=== PATIENT | male | born 1990 | race American Indian/Alaskan Native ===

== ENCOUNTER 2019-02-18 02:43 | Emergency (ER) | payer SELFPAY ==
[2019-02-18] MEDS ORDERED: BOOSTRIX IM ONE (02:54)
[2019-02-18] MEDS ORDERED: XYLOCAINE 1% MPF 5 mL INFILTRATI ONE ×2 (02:54→05:24)
[2019-02-18] MEDS ORDERED: IBUPROFEN PO ONE (02:54)
[2019-02-18 02:58] VITALS: BP 148/99
--- NOTE | 2019-02-18 03:45 | XRay Report ---
RIGHT HAND, 3 VIEWS 02/18/2019 INDICATION / CLINICAL INFORMATION: hand pain - laceration, foreign bodies. COMPARISON: None available. FINDINGS: No skeletal abnormality. No radiopaque soft tissue foreign bodies are identified. Signer Name: Jamshid Chavez MD Signed: 02/18/2019 3:40 AM Workstation Name: [id number]
--- NOTE | 2019-02-18 03:46 | XRay Report ---
RIGHT WRIST, 3 VIEWS 02/18/2019 INDICATION / CLINICAL INFORMATION: foreign body - pain, laceration. COMPARISON: None available. FINDINGS: No fracture or dislocation. Carpal alignment is normal. No radiopaque soft tissue foreign bodies. Signer Name: Jamshid Chavez MD Signed: 02/18/2019 3:41 AM Workstation Name: [id number]
[2019-02-18] MEDS ORDERED: XYLOCAINE 1% MPF 5 mL ONE ×2 (05:05→05:26)
--- NOTE | 2019-02-18 05:52 | Emergency Department Report ---
ED Fall HPI - General Chief Complaint: Wound/Laceration Stated Complaint: RT HAND LAC Source: patient Mode of arrival: Ambulatory - History of Present Illness Initial Comments: Patient is a 29-year-old -Armenian male with no past medical history presented to the ED with painful bleeding right hand laceration and wrist pain after he slipped and fell down at work landing on broken glass that cut his right thumb about 2 hours ago. Patient denies numbness or tingling or weakness of right hand or right wrist. Patient denies head or neck injuries, back pain, hip pain, loss of consciousness, easiness, syncope, or abdominal pain. Patient states that he is not updated his tetanus vaccinations. 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: yes, by bystander Place Fall Occurred: work Loss of Consciousness: none Prolonged Down Time?: no Symptoms Prior to Fall: none Location: other (right wrist and hand) Location - Extremities: Right: Hand (Bleeding laceration) Severity: severe Severity scale (0 -10): 7 Quality: sharp, aching Context: tripped/slipped Associated Symptoms: denies: headache, neck pain, numbness, weakness, chest paint, abdominal pain, hematuria, lightheaded, other - Related Data Previous Rx's Medication Instructions Recorded Last Taken Type Ibuprofen [Motrin] 600 mg PO Q8H PRN #24 tablet 02/18/19 Unknown Rx Sulfamethoxazole/Trimethoprim 1 each PO Q12H #20 tablet 02/18/19 Unknown Rx [Bactrim DS TAB] Allergies Allergy/AdvReac Type Severity Reaction Status Date / Time No Known Allergies Allergy Verified 02/18/19 02:48 ED Review of Systems ROS: Stated complaint: RT HAND LAC Other details as noted in HPI Constitutional: denies: chills, fever Eyes: denies: eye pain, eye discharge, vision change ENT: denies: ear pain, throat pain Respiratory: denies: cough, shortness of breath, wheezing Cardiovascular: denies: chest pain, palpitations Endocrine: no symptoms reported Gastrointestinal: denies: abdominal pain, nausea, diarrhea Genitourinary: denies: urgency, dysuria Musculoskeletal: arthralgia (right hand pain due to bleeding laceration). denies: back pain, joint swelling Skin: other (bleeding laceration on right hand on the palmar side). denies: rash, lesions Neurological: denies: headache, weakness, paresthesias Psychiatric: denies: anxiety, depression Hematological/Lymphatic: denies: easy bleeding, easy bruising ED Past Medical Hx - Past Medical History Previous Medical History?: Yes Hx Hypertension: Yes (no meds) - Surgical History Past Surgical History?: Yes Additional Surgical History: finger - Social History Smoking Status: Current Every Day Smoker Substance Use Type: None - Medications Home Medications: Home Medications Medication Instructions Recorded Confirmed Last Taken Type Ibuprofen [Motrin] 600 mg PO Q8H PRN #24 tablet 02/18/19 Unknown Rx Sulfamethoxazole/Trimethoprim 1 each PO Q12H #20 tablet 02/18/19 Unknown Rx [Bactrim DS TAB] ED Physical Exam - General Limitations: No Limitations (headache) General appearance: alert, in no apparent distress - Head Head exam: Present: atraumatic, normocephalic, normal inspection - Eye Eye exam: Present: normal appearance, PERRL, EOMI - ENT ENT exam: Present: normal exam, normal orophraynx, mucous membranes moist, TM's normal bilaterally, normal external ear exam - Neck Neck exam: Present: normal inspection, full ROM. Absent: tenderness - Respiratory Respiratory exam: Present: normal lung sounds bilaterally. Absent: respiratory distress, wheezes, rhonchi, chest wall tenderness, accessory muscle use, decreased breath sounds, prolonged expiratory - Cardiovascular Cardiovascular Exam: Present: regular rate, normal rhythm, normal heart sounds. Absent: systolic murmur, diastolic murmur, rubs, gallop - GI/Abdominal GI/Abdominal exam: Present: soft, normal bowel sounds. Absent: tenderness, hyperactive bowel sounds, organomegaly - Rectal Rectal exam: Present: deferred - Extremities Exam Extremities exam: Present: normal inspection, full ROM, tenderness (palpable tenderness on the right hand and wrist due to a bleeding 5 cm laceration on the palmar side of the right hand), normal capillary refill - Back Exam Back exam: Present: normal inspection, full ROM. Absent: tenderness, CVA tenderness (L), muscle spasm, vertebral tenderness - Neurological Exam Neurological exam: Present: alert, oriented X3, CN II-XII intact, normal gait, reflexes normal - Psychiatric Psychiatric exam: Present: normal affect, normal mood - Skin Skin exam: Present: warm, dry, intact, normal color, other (bleeding 5 cm laceration on right hand on the palmar side). Absent: rash ED Course Vital Signs 02/18/19 02/18/19 02:44 02:47 Temperature 99.9 F H 99.0 F Pulse Rate 115 H Respiratory 18 Rate Blood Pressure 148/99 O2 Sat by Pulse 95 Oximetry - Reevaluation(s) Reevaluation #1: 02/18/19 05:49 This 29-year-old male presented to the ED with painful bleeding right hand laceration and right wrist pain after he slipped and fell down on broken glass at work about 2 hours ago. In the ED, patient is alert and oriented 3 and is not in distress but in pain. Patient was treated in the ED with for pain and also given tetanus vaccination. The right hand laceration was sutured per protocol and patient tolerated the procedure well. Right hand x-ray shows no acute fractures or subluxations, or foreign object in the tissues. Right wrist x-ray also shows no acute fractures or subluxations or foreign bodies in the tissues. Patient was discharged home on pain medications and prophylactic antibiotics and advised to follow-up with [facility] in 7-10 days for reevaluation. Patient was advised to return to the ED immediately if symptoms get worse, otherwise follow-up with a primary care physician or return to the ED in 12-14 days for suture removal. - Laceration /Wound Repair Right Palm Hand Wound Location: upper extremity (RIGHT PALM) Wound Length (cm): 5 Wound's Depth, Shape: superficial, linear Wound Explored: contaminated Irrigated w/ Saline (ccs): 50 Betadine Prep?: Yes Anesthesia: 1% Lidocaine Volume Anesthetic (ccs): 7 Wound Debrided: extensive Wound Repaired With: sutures Suture Size/Type: 3:0, proline Number of Sutures: 10 Layer Closure?: No Sterile Dressing Applied?: Yes Progress: Patient tolerated the procedure well and was discharged home on pain medications and antibiotics and advised to return to the ED due to his primary care physician in 12-14 days for suture removal or return to the ED immediately if symptoms get worse. ED Medical Decision Making - Radiology Data Radiology results: report reviewed, image reviewed Right hand x-ray shows no acute fractures or subluxations, or foreign bodies. Right wrist x-ray shows no acute fractures or subluxations or foreign bodies in the tissues. - Medical Decision Making This 29-year-old male presented to the ED with painful bleeding right hand laceration and right wrist pain after he slipped and fell down on broken glass at work about 2 hours ago. In the ED, patient is alert and oriented 3 and is not in distress but in pain. Patient was treated in the ED with for pain and al so given tetanus vaccination. The right hand laceration was sutured per protocol and patient tolerated the procedure well. Right hand x-ray shows no acute fractures or subluxations, or foreign object in the tissues. Right wrist x-ray also shows no acute fractures or subluxations or foreign bodies in the tissues. Patient was discharged home on pain medications and prophylactic antibiotics and advised to follow-up with [facility] in 7-10 days for reevaluation. Patient was advised to return to the ED immediately if symptoms get worse, otherwise follow-up with a primary care physician or return to the ED in 12-14 days for suture removal. - Differential Diagnosis Hand sprain; Wrist sprain; Hand laceration; Foreign bodies in hand wound Critical care attestation.: If time is entered above; I have spent that time in minutes in the direct care of this critically ill patient, excluding procedure time. ED Disposition Clinical Impression: Laceration of right hand Qualifiers: Encounter type: initial encounter Foreign body presence: without foreign body Qualified Code(s): S61.411A - Laceration without foreign body of right hand, initial encounter Sprain of right wrist Qualifiers: Encounter type: initial encounter Qualified Code(s): S63.501A - Unspecified sprain of right wrist, initial encounter Disposition: DC-01 TO HOME OR SELFCARE Is pt being admited?: No Does the pt Need Aspirin: No Condition: Stable Instructions: Laceration (ED), Suture Care (ED), Wrist Sprain (ED) Additional Instructions: Take medication with food, drink plenty of fluids and follow-up with your primary care physician in [facility] clinic in 7-10 days for reevaluation. Return to the ED immediately if symptoms get worse. Otherwise return to the ED or to [facility] in 1214 days for suture removal. Prescriptions: Sulfamethoxazole/Trimethoprim [Bactrim DS TAB] 1 each PO Q12H #20 tablet Ibuprofen [Motrin] 600 mg PO Q8H PRN #24 tablet PRN Reason: Pain Referrals: [facility] [Outside] - 3-5 Days Forms: Work/School Release Form(ED) Time of Disposition: 05:54 Print Language: KHMER
== END 2019-02-18 06:10 | disposition home or self-care (01) ==
LOC: ED 02:43
DX: S61.411A Laceration without foreign body of right hand, initial encounter (principal); S63.501A Unspecified sprain of right wrist, initial encounter; I10 Essential (primary) hypertension; F17.200 Nicotine dependence, unspecified, uncomplicated; Z98.890 Other specified postprocedural states; Z79.899 Other long term (current) drug therapy; W25.XXXA Contact with sharp glass, initial encounter; Y93.89 Activity, other specified; Y92.89 Other specified places as the place of occurrence of the external cause; Y99.8 Other external cause status
CPT/HCPCS: 90471; 90715

== ENCOUNTER 2020-12-30 08:11 | Emergency (ER) | payer SELFPAY ==
[2020-12-30 08:58] VITALS: BP 151/109
--- NOTE | 2020-12-30 09:39 | Emergency Department Report ---
ED Male HPI - General Chief complaint: Skin Rash Stated complaint: PAIN LOWER ABDOMIN Time Seen by Provider: 12/30/20 09:26 Source: patient Mode of arrival: Ambulatory Limitations: No Limitations - History of Present Illness Initial comments: 31-year-old male presents to the ER today with complaints of a genital rash. Patient states that the rash started a week ago and has since spread and gotten worse. He states that it is sore, but also itchy and irritated. He has been using peroxide and black soap to keep it clean. He is uncertain of how he may have gotten the rash, he denies any new meds, lotions, soaps or any other new contacts. He states that has never had this before. He denies any penile discharge or dysuria. His sexual preference is bisexual but states that he has not had any new partners lately. He denies any fever or chills. Past medical history significant only for hypertension and he denies any other past medical history. MD Complaint: other (Genital rash ) -: week(s) (1) - Related Data Previous Rx's Medication Instructions Recorded Last Taken Type Sulfamethoxazole/Trimethoprim 1 each PO Q12H #20 tablet 02/18/19 Unknown Rx [Bactrim DS TAB] Bacitracin Zinc Oint [Antibiotic 1 applic TP TID #30 gram 12/30/20 Unknown Rx Oint] Ibuprofen [Motrin 600 MG tab] 600 mg PO Q8H PRN #24 tablet 12/30/20 Unknown Rx Valacyclovir HCl [Valtrex] 1,000 mg PO Q12H #20 tablet 12/30/20 Unknown Rx Allergies Allergy/AdvReac Type Severity Reaction Status Date / Time No Known Allergies Allergy Verified 12/30/20 08:54 ED Review of Systems ROS: Stated complaint: PAIN LOWER ABDOMIN Other details as noted in HPI Comment: All other systems reviewed and negative Constitutional: denies: chills, fever Eyes: denies: eye pain, eye discharge, vision change ENT: denies: ear pain, throat pain, dental pain, hearing loss, epistaxis, conge stion Respiratory: denies: cough, shortness of breath, SOB with exertion, SOB at rest, wheezing Cardiovascular: denies: chest pain, palpitations, dyspnea on exertion, edema, syncope, paroxysmal nocturnal dyspnea Gastrointestinal: denies: abdominal pain, nausea, diarrhea, constipation, hematemesis, melena, hematochezia Genitourinary: denies: urgency, dysuria Musculoskeletal: denies: back pain, joint swelling, arthralgia Skin: rash. denies: lesions, change in color, change in hair/nails, pruritus Neurological: denies: headache, weakness, numbness, paresthesias, confusion, abnormal gait, vertigo Psychiatric: denies: anxiety, depression, auditory hallucinations, visual hallucinations, homicidal thoughts, suicidal thoughts Hematological/Lymphatic: denies: easy bleeding, easy bruising, swollen glands ED Past Medical Hx - Past Medical History Previous Medical History?: Yes Hx Hypertension: Yes (no meds) - Surgical History Past Surgical History?: No Additional Surgical History: finger - Social History Smoking Status: Current Every Day Smoker Substance Use Type: None - Medications Home Medications: Home Medications Medication Instructions Recorded Confirmed Last Taken Type Sulfamethoxazole/Trimethoprim 1 each PO Q12H #20 tablet 02/18/19 Unknown Rx [Bactrim DS TAB] Bacitracin Zinc Oint [Antibiotic 1 applic TP TID #30 gram 12/30/20 Unknown Rx Oint] Ibuprofen [Motrin 600 MG tab] 600 mg PO Q8H PRN #24 tablet 12/30/20 Unknown Rx Valacyclovir HCl [Valtrex] 1,000 mg PO Q12H #20 tablet 12/30/20 Unknown Rx ED Physical Exam - General Limitations: No Limitations General appearance: alert, in no apparent distress - Head Head exam: Present: atraumatic, normocephalic, normal inspection - Eye Eye exam: Present: normal appearance, PERRL, EOMI Pupils: Present: normal accommodation - ENT ENT exam: Present: mucous membranes moist - Respiratory Respiratory exam: Present: normal lung sounds bilaterally. Absent: respiratory distress, wheezes, rales, rhonchi - Cardiovascular Cardiovascular Exam: Present: regular rate, normal rhythm, normal heart sounds - GI/Abdominal GI/Abdominal exam: Present: soft. Absent: distended, tenderness, guarding - exam: Present: other (Ornament Setter present). Absent: testicular tenderness, urethral discharge External exam: Present: lesions (Patient has multiple raised, hyperpigmented, superficially ulcerated lesions scattered to his buttocks, perirectal area, perineal area, scrotum and shaft of the penis) - Neurological Exam Neurological exam: Present: alert, oriented X3, CN II-XII intact, normal gait - Psychiatric Psychiatric exam: Present: normal affect, normal mood ED Course Vital Signs 12/30/20 08:56 Temperature 98.9 F Pulse Rate 92 H Respiratory 20 Rate Blood Pressure 151/109 O2 Sat by Pulse 97 Oximetry ED Medical Decision Making - Medical Decision Making Patient with multiple raised, superficially ulcerated, lesions of varying sizes scattered to his buttocks, rectum, perineum, scrotum and penis. There is some tenderness to palpation to some of them, but no apparent secondary bacterial infection. Exact cause of this rash is unclear but patient will be treated for possible genital herpes with Valtrex but informed patient that he will need to follow-up with ID specialist for further testing, and possible biopsy if needed and treatment of the rash especially if he does not get better with the Valtrex. Patient expressed understanding and agree with plan. Patient stable at time of discharge. Critical care attestation.: If time is entered above; I have spent that time in minutes in the direct care of this critically ill patient, excluding procedure time. ED Disposition Clinical Impression: Rash of genital area Disposition: 01 HOME / SELF CARE / HOMELESS Is pt being admited?: No Does the pt Need Aspirin: No Condition: Stable Instructions: Rash, Adult, [id number] Additional Instructions: You will be started on Valtrex to cover for possible genital herpes, but it is important that you follow-up with the infectious disease doctor to determine the exact cause of this genital rash. Infectious disease doctors will be provided to you on this discharge instructions. Recommend stop using any peroxide and just use regular soap and water and you can apply thin layer bacitracin ointment to the areas to help with preventing any secondary bacterial infection. Take motrin to help with pain and benadryl to help with any itching. I would recommend avoiding any sexual contact until you follow-up with your infectious disease doctor. Return to the ER if your symptoms changes or worsens in any way. Prescriptions: Bacitracin Zinc Oint [Antibiotic Oint] 1 applic TP TID #30 gram Ibuprofen [Motrin 600 MG tab] 600 mg PO Q8H PRN #24 tablet PRN Reason: Pain Valacyclovir HCl [Valtrex] 1,000 mg PO Q12H #20 tablet Referrals: DILLON MARIE MD [Staff Physician] - 3-5 Days JOANNE FOX MD [Staff Physician] - 3-5 Days [facility] [place], Jose Milner [Other] - 3-5 Days Forms: Work/School Release Form(ED) Time of Disposition: 09:41
== END 2020-12-30 10:39 | disposition home or self-care (01) ==
LOC: ED 08:11
DX: R21 Rash and other nonspecific skin eruption (principal); I10 Essential (primary) hypertension; F17.200 Nicotine dependence, unspecified, uncomplicated; Z79.899 Other long term (current) drug therapy; Z98.890 Other specified postprocedural states
CPT/HCPCS: 99282

== ENCOUNTER 2021-01-13 11:48 | Emergency (ER) | payer SELFPAY ==
[2021-01-13 11:59] VITALS: BP 151/114
--- NOTE | 2021-01-13 12:09 | Emergency Department Report ---
ED General Adult HPI - General Chief complaint: Skin/Abscess/Foreign Body Stated complaint: OPEN WOUND RT LEG Time Seen by Provider: 01/13/21 12:04 Source: patient Mode of arrival: Ambulatory Limitations: No Limitations - History of Present Illness Initial comments: 30-year-old -[place] Islander male patient with history of hypertension presents with complaints of right lower leg pain and swelling x3 to 4 days. Patient states he noticed a white blister/bump in the area 3 days ago. He states that last night it popped and now there is an open sore. He denies any fever/chills/sweats, bone pain, difficulty moving his leg, or history of immunocompromising diseases. He also reports that he has been out of his amlodipine for the past 3 days and that he is not currently following with a PCP. No headache, chest pain, shortness of breath, vision changes, dizziness, or other neurological symptoms per patient. - Related Data Previous Rx's Medication Instructions Recorded Last Taken Type Bacitracin Zinc Oint [Antibiotic 1 applic TP TID #30 gram 12/30/20 Unknown Rx Oint] Ibuprofen [Motrin 600 MG tab] 600 mg PO Q8H PRN #24 tablet 12/30/20 Unknown Rx Valacyclovir HCl [Valtrex] 1,000 mg PO Q12H #20 tablet 12/30/20 Unknown Rx Ibuprofen [Motrin 800 MG tab] 800 mg PO Q8HR PRN #20 tablet 01/13/21 Unknown Rx Mupirocin [Bactroban 2% OINT] 1 applic TP TID 10 Days #1 tube 01/13/21 Unknown Rx Sulfamethoxazole/Trimethoprim 1 each PO Q12H 10 Days #20 tablet 01/13/21 Unknown Rx [Bactrim DS TAB] amLODIPine 5 mg PO DAILY 30 Days #30 tab 01/13/21 Unknown Rx Allergies Allergy/AdvReac Type Severity Reaction Status Date / Time No Known Allergies Allergy Verified 01/13/21 12:01 ED Review of Systems ROS: Stated complaint: OPEN WOUND RT LEG Other details as noted in HPI Constitutional: denies: chills, diaphoresis, fever, malaise, weakness Respiratory: denies: shortness of breath Cardiovascular: denies: chest pain Musculoskeletal: denies: joint swelling, arthralgia Skin: as per HPI Neurological: denies: headache, weakness, numbness, paresthesias, abnormal gait ED Past Medical Hx - Past Medical History Hx Hypertension: Yes (no meds) - Surgical History Past Surgical History?: Yes Additional Surgical History: finger - Social History Smoking Status: Current Every Day Smoker Substance Use Type: None - Medications Home Medications: Home Medications Medication Instructions Recorded Confirmed Last Taken Type Bacitracin Zinc Oint [Antibiotic 1 applic TP TID #30 gram 12/30/20 Unknown Rx Oint] Ibuprofen [Motrin 600 MG tab] 600 mg PO Q8H PRN #24 tablet 12/30/20 Unknown Rx Valacyclovir HCl [Valtrex] 1,000 mg PO Q12H #20 tablet 12/30/20 Unknown Rx Ibuprofen [Motrin 800 MG tab] 800 mg PO Q8HR PRN #20 tablet 01/13/21 Unknown Rx Mupirocin [Bactroban 2% OINT] 1 applic TP TID 10 Days #1 tube 01/13/21 Unknown Rx Sulfamethoxazole/Trimethoprim 1 each PO Q12H 10 Days #20 tablet 01/13/21 Unknown Rx [Bactrim DS TAB] amLODIPine 5 mg PO DAILY 30 Days #30 tab 01/13/21 Unknown Rx ED Physical Exam - General Limitations: No Limitations General appearance: alert, in no apparent distress - Head Head exam: Present: atraumatic, normocephalic - Eye Eye exam: Present: normal appearance. Absent: scleral icterus - Respiratory Respiratory exam: Absent: respiratory distress - Cardiovascular Cardiovascular Exam: Present: regular rate - Neurological Exam Neurological exam: Present: alert, oriented X3, normal gait - Psychiatric Psychiatric exam: Present: normal affect, normal mood - Skin Skin exam: Present: warm, dry, normal color, other (Approximately 1 cm open wound noted to right lateral leg with surrounding induration and tenderness to palpation; no cellulitic changes noted; no active purulent drainage noted). Absent: rash ED Course Vital Signs 01/13/21 11:54 Temperature 98.1 F Pulse Rate 99 H Respiratory 18 Rate Blood Pressure 151/114 O2 Sat by Pulse 96 Oximetry ED Medical Decision Making - Medical Decision Making 30-year-old -[place] male patient with history of hypertension presents with complaints of right lower leg pain and swelling x3 to 4 days. Patient states he noticed a white blister/bump in the area 3 days ago. He states that last night it popped and now there is an open sore. He denies any fever/chills/sweats, bone pain, difficulty moving his leg, or history of immunocompromising diseases. He also reports that he has been out of his amlodipine for the past 3 days and that he is not currently following with a PCP. No headache, chest pain, shortness of breath, vision changes, dizziness, or other neurological symptoms per patient. On exam, patient has induration surrounding a very small open wound that appears to be an open abscess. Will treat with Bactrim and mupirocin. Refill for amlodipine given. Stressed importance of follow-up with PCP for continued blood pressure control and recheck of wound. Discussed presumptive diagnosis, plan of care, and signs and symptoms that should prompt immediate return to the emergency department in detail with patient who verbalized understanding. Critical care attestation.: If time is entered above; I have spent that time in minutes in the direct care of this critically ill patient, excluding procedure time. ED Disposition Clinical Impression: Infected blister of right leg, Medication refill Disposition: 01 HOME / SELF CARE / HOMELESS Is pt being admited?: No Condition: Stable Instructions: Skin Abscess, Hypertension, Adult Prescriptions: amLODIPine 5 mg PO DAILY 30 Days #30 tab Sulfamethoxazole/Trimethoprim [Bactrim DS TAB] 1 each PO Q12H 10 Days #20 tablet Mupirocin [Bactroban 2% OINT] 1 applic TP TID 10 Days #1 tube Ibuprofen [Motrin 800 MG tab] 800 mg PO Q8HR PRN #20 tablet PRN Reason: pain Referrals: PRIMARY CARE [Primary Care Provider] - 3-5 Days [facility] [Provider Group] - 3-5 Days
== END 2021-01-13 12:37 | disposition home or self-care (01) ==
LOC: ED 11:48
DX: S80.821A Blister (nonthermal), right lower leg, initial encounter (principal); Z76.0 Encounter for issue of repeat prescription; L08.89 Other specified local infections of the skin and subcutaneous tissue; I10 Essential (primary) hypertension; Z98.890 Other specified postprocedural states; F17.200 Nicotine dependence, unspecified, uncomplicated; X58.XXXA Exposure to other specified factors, initial encounter; Y93.89 Activity, other specified; Y92.89 Other specified places as the place of occurrence of the external cause; Y99.8 Other external cause status
CPT/HCPCS: 99282

== ENCOUNTER 2021-06-07 16:28 | Emergency (ER) | payer SELFPAY ==
[2021-06-07 16:32] VITALS: BP 129/92
== END 2021-06-07 18:45 | disposition left against medical advice (07) ==
LOC: ED 16:28
DX: L02.91 Cutaneous abscess, unspecified (principal); Z53.21 Procedure and treatment not carried out due to patient leaving prior to being seen by health care provider

== ENCOUNTER 2021-06-08 14:59 | Emergency (ER) | payer SELFPAY ==
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
[2021-06-08 17:14] VITALS: BP 129/82
== END 2021-06-08 17:14 | disposition home or self-care (01) ==
LOC: ED 14:59
DX: Z48.817 Encounter for surgical aftercare following surgery on the skin and subcutaneous tissue (principal); F17.200 Nicotine dependence, unspecified, uncomplicated
CPT/HCPCS: 99282